=== PATIENT | male | born 1975 | race Caucasian/White ===

== ENCOUNTER 2025-06-19 12:28 | Day surgery (SDC) | payer OTHER, SELFPAY ==
[2025-06-07 13:25] VITALS: BMI 34.5
[2025-06-19 12:47] VITALS: BP 168/119; PULSE 81; RESP 16; TEMP 36.2; O2SAT 99; BMI 34.6
--- NOTE | 2025-06-19 12:50 | P.PNAN_ITS ---
Anes - Initial Pre Proc Eval Procedure: Operation Date: 06/19/25 14:00 Proposed Procedures p Screening Colonoscopy - Celestino Gross MD Date/Time: 06/19/25 12:50 Surgeon: Celestino Gross MD Pre Op Diagnosis: Screening Patient Data Age: 50 Gender: M Height: 1.73 m Weight: 103.2 kg Last Vital Signs Temp 36.2 C L 06/19/25 12:47 Pulse 81 06/19/25 12:47 Resp 16 06/19/25 12:47 BP 168/119 H 06/19/25 12:47 Pulse Ox 99 06/19/25 12:47 O2 Del Method Room Air 06/19/25 12:47 Allergies Allergy/AdvReac Type Severity Reaction Status Date / Time Cat Dander Allergy Mild Unknown Uncoded 04/06/25 08:44 Home Medications ?Medication ?Instructions ?Recorded ?Confirmed ?Type fluoxetine 20 mg capsule 40 mg (2 x 20 mg) PO DAILY # 60 caps 04/25/25 06/19/25 Rx pantoprazole 40 mg tablet,delayed 40 mg PO QAM #30 tab s 04/25/25 06/19/25 Rx release (Protonix) multivit,calcium,min-folic acid 1 tablet PO DAILY 12/2506/19/25 History 240 mcg-D3 25 mcg-lycop 300 mcg tablet (One A Day Men Complete) Patient hx anesthesia problems: none Family hx anesthesia problems: none Results Review: All pre-operative results and documents have been reviewed as part of the pre- operative evaluation. [facility] Past Medical History Medical History Hypogonadism male total testosterone 314 with free testosterone 5.8 on 05/30/2023. total testosterone 197 with free testosterone 4.3 on 08/08/2023. BMI 34.0-34.9,adult Gastro-esophageal reflux disease without esophagitis History of stricture. Fatigue Hemoglobin 16.5, TSH 2.16, glucose 94 on 06/01/2025. Encounter for wellness examination in adult Colon cancer screening Vitamin D deficiency, unspecified Level low at 21 with goal greater than 30 on 05/30/2023. Level normal at 38.1 on 06/01/2025. Mixed hyperlipidemia cholesterol 192, triglycerides 225, HDL 44, LDL 109 on 05/30/2023. Elevated liver enzymes AST 75, ALT 99 on 05/30/2023. Hepatitis serology was negative on 05/24/2016. GGT normal at 28, AST 28, ALT 30 on 06/01/2025. Elevated fasting glucose Fasting glucose 100 with hemoglobin A1c 5.7 and GFR 95 on 05/30/2023. Fasting glucose 94 with hemoglobin A1c 5.3 and GFR 73 on 06/01/2025. Screening for cardiovascular condition (06/01/25) Coronary artery calcium CT scan 06/01/2025 with a calcium score of 0 with a very low risk for coronary artery plaques. Hypersomnia Chronic depression Essential hypertension Family History Family History Father Alcoholism Hypertension Heart disease Social History Social History Smoking status: Never smoker Alcohol intake: current Alcohol use details: occasional beer Substance use: never Substance use type: does not use Living arrangements: with family Spiritual care concerns: No Anes - Eval Final PreProcedure Day of Procedure 06/19/25 12:50 Patient weight: normal Heart: regular rate and rhythm Lungs: clear to auscultation Airway: Mallampati scale class II Neurological: alert and oriented Last oral intake: >/= 8 hours ASA classification: II Emergent: no Anesthetic plan: proceed Anesthesia type and monitoring: monitored anesthesia care and standard monitoring Other findings: Pt c/o headache- IV toradol given Results Review: All pre-operative results and documents have been reviewed as part of the pre- operative evaluation. Informed Consent: The patient's anesthetic plan and its attendant risks and benefits were discussed with the patient/family/POA. Questions were solicited and answers provided to the satisfaction of the patient/family/POA.
[2025-06-19] MEDS: LACTATED RINGERS 1,000 ML 150 ML IV CONT (12:55)
--- NOTE | 2025-06-19 13:05 | PM.IMHP ---
H&P: HPI History of Present Illness Date/Time: 06/19/25 13:05 Chief Complaint: Screening colonoscopy Narrative: This is the patient's first colonoscopy. There are no GI symptoms and there is no family history of colorectal cancer. Review of Systems Review of Systems: All systems reviewed & are unremarkable except as noted in HPI and below [facility] Past Medical History Medical History Hypogonadism male total testosterone 314 with free testosterone 5.8 on 05/30/2023. total testosterone 197 with free testosterone 4.3 on 08/08/2023. BMI 34.0-34.9,adult Gastro-esophageal reflux disease without esophagitis History of stricture. Fatigue Hemoglobin 16.5, TSH 2.16, glucose 94 on 06/01/2025. Encounter for wellness examination in adult Colon cancer screening Vitamin D deficiency, unspecified Level low at 21 with goal greater than 30 on 05/30/2023. Level normal at 38.1 on 06/01/2025. Mixed hyperlipidemia cholesterol 192, triglycerides 225, HDL 44, LDL 109 on 05/30/2023. Elevated liver enzymes AST 75, ALT 99 on 05/30/2023. Hepatitis serology was negative on 05/24/2016. GGT normal at 28, AST 28, ALT 30 on 06/01/2025. Elevated fasting glucose Fasting glucose 100 with hemoglobin A1c 5.7 and GFR 95 on 05/30/2023. Fasting glucose 94 with hemoglobin A1c 5.3 and GFR 73 on 06/01/2025. Screening for cardiovascular condition (06/01/25) Coronary artery calcium CT scan 06/01/2025 with a calcium score of 0 with a very low risk for coronary artery plaques. Hypersomnia Chronic depression Essential hypertension Family History Family History Father Alcoholism Hypertension Heart disease Social History Social History Smoking status: Never smoker Alcohol intake: current Alcohol use details: occasional beer Substance use: never Substance use type: does not use Living arrangements: with family Spiritual care concerns: No Meds Home Medications and Allergies Home Medications ?Medication ?Instructions ?Recorded ?Confirmed ?Type fluoxetine 20 mg capsule 40 mg (2 x 20 mg) PO DAILY #60 caps 04/25/25 06/19/25 Rx pantoprazole 40 mg tablet,delayed 40 mg PO QAM #30 tabs 04/25/25 06/19/25 Rx release (Protonix) multivit,calcium,min-folic acid 1 tablet PO DAILY 06/07/25 06/19/25 History 240 mcg-D3 25 mcg-lycop 300 mcg tablet (One A Day Men Complete) Allergies Allergy/AdvReac Type Severity Reaction Status Date / Time Cat Dander Allergy Mild Unknown Uncoded 04/06/25 08:44 Vital Signs Vital Signs - 24 hr 06/19/25 12:47 Temperature 97.1 F L Pulse Rate 81 Respiratory Rate 16 Blood Pressure 168/119 H Pulse Oximetry 99 Oxygen Delivery Room Air Exam Const: General: cooperative and healthy appearing Resp: Effort & Inspection: normal respiratory effort and able to speak in complete sentences Auscultation: clear to auscultation bilaterally Cardio: Rate: regular rate Rhythm: regular rhythm GI: Inspection: normal to inspection GI Palp: No No hepatosplenomegaly present Auscultation: normal bowel sounds Rectal Exam: deferred Skin: General skin exam: normal color Psych: Appearance: grossly normal Mental Status: mental status grossly normal Assessment and Plan Assessment and plan (1) Encounter for screening colonoscopy: Code(s): Z12.11 - Encounter for screening for malignant neoplasm of colon Status: Acute Assessment and Plan: The patient is deemed a good candidate for the procedure. Consent signed. Will proceed.
[2025-06-19] MEDS: SIMETHICONE ORAL SUSPENSION 20 MG/0.3 ML 30 ML BOTTLE 0.6 ML IRRIGATION (13:19)
[2025-06-19 13:30] VITALS: BP 112/76; PULSE 69; RESP 16; O2SAT 100
[2025-06-19 13:40] VITALS: BP 118/76; PULSE 60; RESP 18; O2SAT 100
[2025-06-19 13:50] VITALS: BP 114/79; PULSE 59; RESP 18; O2SAT 100
== END 2025-06-19 13:58 | disposition home or self-care (01) ==
PROVIDERS: PCP Family Medicine; Referring Provider Family Medicine; Visit Provider Internal Medicine Gastroenterology
PROC: 0DJD8ZZ Inspection of Lower Intestinal Tract, Via Natural or Artificial Opening Endoscopic (ICD-10-PCS; CPT 45378; principal; 2025-06-19 14:00)
DX: Z12.11 Encounter for screening for malignant neoplasm of colon (principal); D12.2 Benign neoplasm of ascending colon; K57.30 Diverticulosis of large intestine without perforation or abscess without bleeding
CPT/HCPCS: 45385

== ENCOUNTER 2025-06-19 14:21 | Outpatient (NON) | payer OTHER, SELFPAY ==
--- NOTE | 2025-06-19 | S_PTH ---
PATIENT: Ian Lux LOC: [facility] U#:[id number] AGE/SX: 50/M ROOM: RE06/19/[address]: Celestino Gross MD : 1975 BED: DIS: 06/19/2025 SPEC #: [id number] RECD: 06/21/25 07:31 STATUS: SHANE REKaye #: [id number] [place]: 06/19/25 00:[address]: Celestino Gross DEPT: [facility] Surgical RECD BY: Thai Saez ENTERED: 06/21/25 07:31 SP TYPE: Surgical OTHR DR: Talat Rodriguez MD Tissues: A - Colon Polypectomy Procedures: Hematoxylin and Eosin Stain Gross and Microscopic Level 4
== END 2025-06-19 14:22 | disposition home or self-care (01) ==
LOC: ANHLAB 06-20 14:21
PROVIDERS: PCP Family Medicine; Visit Provider Internal Medicine Gastroenterology
DX: Z12.11 Encounter for screening for malignant neoplasm of colon (principal); D12.2 Benign neoplasm of ascending colon
CPT/HCPCS: 88305